=== PATIENT | male | born 1975 | race Caucasian/White ===

== ENCOUNTER 2017-09-15 16:03 | Emergency (ER) | payer OTHER ==
[~2017-09-15] VITALS: Ht 177.8 cm; Wt 99.8 kg
[~2017-09-15 16:03] MED LIST: AMOXICILLIN 50500 MG PO; BACTRIM DS TAB1 EACH PO; BENADRYL25 MG; CARISOPRODOL 3350 MG PO; HYDROCODONE-AP1 EAC6 PO; NORCO 5-325 TA1 EACH PO; NUCYNTA100 MG PO; PERCOCET 10-321 EACH; XANAX 0.5 MG0.5 MG
[2017-09-15] MEDS ORDERED: AMOXICILLIN 50500 MG PO (16:37)
[2017-09-15] MEDS ORDERED: HYDROCODONE-AP1 EAC6 PO (16:37)
[2017-09-15] MEDS ORDERED: IBUPROFEN 600600 M1 PO (16:37)
[2017-09-15 16:57] VITALS: BP 130/92
== END 2017-09-15 16:58 | disposition home or self-care (01) ==
LOC: M.ERS 16:03
DX: K04.7 Periapical abscess without sinus (principal); F41.9 Anxiety disorder, unspecified

== ENCOUNTER 2018-02-23 15:06 | Emergency (ER) | payer OTHER ==
[~2018-02-23] VITALS: Ht 177.8 cm; Wt 106.6 kg
[~2018-02-23 15:06] MED LIST changes: +IBUPROFEN 600600 M1 PO
[2018-02-23] MEDS ORDERED: OXYCONTIN20 M1 PO (15:17)
[2018-02-23 15:32] LABS: ABSOLUTE EOSINOPHILS 0.4 thou/uL (0.0-0.7); ABSOLUTE LYMPHOCYTES 0.9 thou/uL (0.8-5.3); ABSOLUTE MONOCYTES 0.4 thou/uL (0.0-1.2); ABSOLUTE NEUTROPHILS 6.5 thou/uL (1.6-8.1); BASOPHILS 0.5 %; EOSINOPHILS 5.3 %; HEMATOCRIT 42.5 % (42.0-52.0); HEMOGLOBIN 14.7 gm/dL (14.0-18.0); LYMPHOCYTES 11.2 %; MCH 29.2 pg (26.0-34.0); MCHC 34.6 g/dL (28.0-37.0); MCV 84.4 fL (80.0-100.0); MONOCYTES 4.5 %; NUCLEATED RBCS 0 /100WBC; PLATELET COUNT* 321 thou/uL (150-400); POLYS 78.5 %; RBC 5.04 mil/uL (4.50-6.00); RDW-CV 13.3 % (10.5-14.5); WBC 8.3 thou/uL (4.0-11.0)
[2018-02-23 15:40] LABS: CALCIUM 8.9 mg/dL (8.5-10.1); POTASSIUM 4.1 mmol/L (3.5-5.1)
[2018-02-23 15:48] LABS: URINE BILIRUBIN NEGATIVE (Negative); URINE BLOOD NEGATIVE (Negative); URINE CLARITY CLEAR; URINE COLOR YELLOW; URINE GLUCOSE-RANDOM NEGATIVE (Negative); URINE KETONES NEGATIVE (Negative); URINE LEUKOCYTES-REFLEX NEGATIVE (Negative); URINE NITRITE-REFLEX NEGATIVE (Negative); URINE PROTEIN NEGATIVE (Negative); URINE UROBILINOGEN 0.2 E.U./dl (0.2-1.0)
[2018-02-23 15:49] LABS: TOTAL BILIRUBIN 0.3 mg/dL (<0.1-1.0)
[2018-02-23 17:01] VITALS: BP 130/85
== END 2018-02-23 17:02 | disposition home or self-care (01) ==
LOC: M.ERS 15:06
PROVIDERS: Family Medicine
DX: R10.31 Right lower quadrant pain (principal); F41.9 Anxiety disorder, unspecified

== ENCOUNTER 2019-09-21 12:41 | Emergency (ER) | payer OTHER ==
[~2019-09-21] VITALS: Ht 180.3 cm; Wt 104.3 kg
[~2019-09-21 12:41] MED LIST changes: +OXYCONTIN20 M1 PO
[2019-09-21 12:50] VITALS: BP 146/84
[2019-09-21] MEDS ORDERED: PERIDEX15 ML SWISH&SPIT (13:15)
== END 2019-09-21 13:18 | disposition home or self-care (01) ==
LOC: M.ERS 12:41
DX: K08.89 Other specified disorders of teeth and supporting structures (principal); F41.9 Anxiety disorder, unspecified